=== PATIENT | female | born 1990 | race Caucasian/White ===

== ENCOUNTER 2018-05-18 09:17 | Emergency (ER) | payer OTHER, SELFPAY ==
[2018-05-18 09:53] LABS: #Basophils 0.1 thou/uL (0.0-0.2); #Eosinphils 0.7 thou/uL (0.0-0.7); #Lymphocytes 2.2 thou/uL (1.20-3.40); #Monocytes 0.7 thou/uL (0.11-0.59); #Neutrophils 5.9 thou/uL (1.40-6.50); %Eosinophils 6.9 % (0.0-10.0); %Lymphocytes 22.7 % (21.0-51.0); %Monocytes 7.7 % (0.0-10.0); %Neutrophils 61.7 % (42.0-75.0); Hemoglobin 14.2 g/dL (12.0-16.0); Mean Corpuscular HGB CONC 35.4 g/dL (32.0-36.0); Mean Corpuscular Hemoglobin 32.5 pg (27.0-31.0); Mean Corpuscular Volume 91.7 fL (78.0-98.0); Mean Platelet Volume 5.7 fL (7.4-10.4); Platelet Count 404 thou/uL (130-400); RBC Distribution Width 10.8 % (11.5-14.5); Red Blood Cell (RBC) Count 4.37 mill/uL (4.20-5.40); White Blood Cell (WBC) Count 9.6 thou/uL (4.8-10.8)
[2018-05-18 10:17] LABS: Bilirubin Negative (Negative); Blood, Urine Large (Negative); Glucose, Urine (Dipstick) Negative (Negative); Leukocyte Negative (Negative); Nitrite Negative (Negative); Protein, Urine (Dipstick) Negative (Neg-Trace); Urobilinogen 0.2 mg/dL (0.2-1.0)
[2018-05-18 10:18] LABS: Clarity Clear (Clear); Pregnancy Test - Urine (BHCG) POSITIVE (Negative); Pregu Control Background? CLEAR/WHITE (CLR/WHITE); Pregu Control Bar Appear? YES (CONTROL BAR)
[2018-05-18 10:28] LABS: Bacteria/HPF Rare-Few HPF (None Seen); Squamous Epithelial 0-3 HPF (0-3); WBC/HPF 0-3 HPF (0-3)
[2018-05-18 10:29] LABS: Hyaline Casts/LPF NONE SEEN LPF (0-3 Hyaline)
--- NOTE | 2018-05-18 12:58 | ULT ---
OB ULTRASOUND LESS THAN 14 WEEKS: Date: 05/18/18 Exam includes transabdominal, vascular duplex with spectral and Doppler imaging, and transvaginal exa mination. HISTORY: 28-year-old female with history of positive test with spotting. FINDINGS: There is an intrauterine gestational sac within the uterus with a small yolk sac and pole. A sm all amount of fluid is noted adjacent to the gestational sac, probably a small amount of extrachorion ic hemorrhage. No heart tones are demonstrated. Right ovary measures 1.3 x 2.1 x 2.9 cm. Left ovary measures 1.8 x 1.9 x 2.3 cm. No abnormal cul-de-s ac fluid. Gestational sac size measures 1.8 cm, equivalent to 6 weeks/5 days of gestation. Angus-rump length approximates 0.4 cm, approximating 6 weeks/0 days. No abscess or abnormal fluid collection. Vascular duplex examination demonstrates arterial inflow and venous outflow. No evidence for ovarian torsion. IMPRESSION: Early intrauterine at approximately 6 weeks/3 days with an EDC of 01/08/2019. Small amount of extrachorionic hemorrhage. Cardiac activity was not demonstrated, which typically would be seen at this age. Follow-up serum HCGs, and if there is any concern for and regards to the status of v iability, a follow-up ultrasound study in several days to a week might be of benefit as well. Unremar kable adnexa. Status of viability is uncertain from this study. Follow-up as above. POS: [facility]
== END 2018-05-18 11:46 | disposition home or self-care (01) ==
LOC: ERS 09:17
DX: O20.0 Threatened abortion (principal); O99.341 Other mental disorders complicating pregnancy, first trimester; F41.9 Anxiety disorder, unspecified; F32.9 Major depressive disorder, single episode, unspecified; F17.210 Nicotine dependence, cigarettes, uncomplicated; Z79.01 Long term (current) use of anticoagulants; Z3A.10 10 weeks gestation of pregnancy
CPT/HCPCS: 36415; 76815; 81003; 81015; 81025; 84702; 85025

== ENCOUNTER 2018-06-02 11:00 | Emergency (ER) | payer OTHER ==
[2018-06-02 11:34] LABS: #Eosinphils 0.3 thou/uL (0.0-0.7); #Lymphocytes 2.3 thou/uL (1.20-3.40); #Monocytes 0.6 thou/uL (0.11-0.59); #Neutrophils 11.8 thou/uL (1.40-6.50); %Basophils 0.2 % (0.0-1.0); %Eosinophils 1.7 % (0.0-10.0); %Lymphocytes 15.2 % (21.0-51.0); %Neutrophils 78.9 % (42.0-75.0); Hemoglobin 13.2 g/dL (12.0-16.0); Mean Corpuscular HGB CONC 34.6 g/dL (32.0-36.0); Mean Corpuscular Hemoglobin 32.1 pg (27.0-31.0); Mean Corpuscular Volume 92.6 fL (78.0-98.0); Mean Platelet Volume 5.9 fL (7.4-10.4); Platelet Count 368 thou/uL (130-400); RBC Distribution Width 10.8 % (11.5-14.5); Red Blood Cell (RBC) Count 4.12 mill/uL (4.20-5.40)
[2018-06-02 12:11] LABS: Bilirubin Negative (Negative); Blood, Urine Large (Negative); Clarity CLOUDY (Clear); Glucose, Urine (Dipstick) Negative (Negative); Leukocyte Small (Negative); Nitrite Positive (Negative); Protein, Urine (Dipstick) Trace mg/dL (Neg-Trace); Specific Gravity, Urine 1.023 (1.002-1.036)
[2018-06-02 12:14] LABS: Bacteria/HPF 4+ HPF (None Seen); Hyaline Casts/LPF 0-3 HYALINE CAST LPF (0-3 Hyaline); Pathc Cast-AUWi Flag 0.94 (0-2.49); RBC/HPF GREATER THAN 50-TNTC HPF (0-3); Squamous Epithelial 0-3 HPF (0-3); WBC/HPF 21-50 HPF (0-3)
--- NOTE | 2018-06-02 15:30 | ULT ---
PELVIC ULTRASOUND: DAET: 06/02/18. HISTORY: Patient with vaginal bleeding and vaginal pain. The patient thinks she had a miscarriage. COMPARISON: 05/18/18. FINDINGS: Multiple transabdominal sonographic images of the pelvis are obtained. The previously seen fluid col lection within the endometrial canal which contained pole and yolk sac on the prior study is no t visualized on this examination suggesting missed . The endometrial stripe measures 1 cm on today's examination. The uterus measures 9.3 cm x 4.3 cm x 5.7 cm. The right ovary measures 2.1 cm x 1.6 cm x 1.6 cm with the left ovary measuring 2.5 cm x 2.5 cm x 2.4 cm. Doppler evaluation of each ovary with spectral analysis and color flow evaluation demonstrates arterial and venous flow in each ovary. No free fluid is seen in the cul-de-sac. IMPRESSION: 1. Previously seen endometrial fluid collection containing pole on the prior study of 05/18/18 is not identified on today's examination suggesting missed . No fluid or fluid collection is seen in the endometrial canal. 2. Normal-appearing bilateral ovaries. 3. The above findings were discussed with Negar Rocha, in the emergency department 06/02/18 at 1316 hours. POS: [facility]
== END 2018-06-02 13:43 | disposition home or self-care (01) ==
LOC: ERS 11:00
DX: O03.4 Incomplete spontaneous abortion without complication (principal); F41.9 Anxiety disorder, unspecified; F32.9 Major depressive disorder, single episode, unspecified; Z87.891 Personal history of nicotine dependence; Z79.899 Other long term (current) drug therapy
CPT/HCPCS: 36415; 76856; 81003; 81015; 84702; 85025; 86900; 86901; 87077; 87086; 87186; 93976